=== PATIENT | male | born 1955 | race Caucasian/White ===

== ENCOUNTER 2016-10-28 07:40 | Emergency (ER) | payer OTHER ==
[~2016-10-28] VITALS: Ht 180.3 cm; Wt 111.3 kg
[~2016-10-28 07:40] MED LIST: DELTASONE20 M1 PO; LEVAQUIN750 MG PO; PROAIR RESPICL90 MCG IH; VICKS DAYQUIL-1 EACH PO
[2016-10-28] MEDS ORDERED: PRAVACHOL20 MG PO (08:07)
[2016-10-28] MEDS ORDERED: VITAMIN D31000 UNIT PO (08:08)
[2016-10-28] MEDS ORDERED: VITAMIN B12-FO1 EACH PO (08:08)
[2016-10-28] MEDS ORDERED: LO-DOSE ASPIRIN81 M2 PO (08:08)
[2016-10-28] MEDS ORDERED: AMLODIPINE BESYL5 MG PO (08:08)
[2016-10-28 08:36] LABS: BASOPHIL COUNT 0.1 K/uL (0-0.1); EOSINOPHIL (%) 2.4 % (0-5); EOSINOPHIL COUNT 0.2 K/uL (0-0.3); HEMATOCRIT 40.3 % (38.0-50.0); IMMATURE GRANULOCYTE (%) 0.9 % (0.0-0.7); IMMATURE GRANULOCYTE COUNT 0.1 K/uL; INSTRUMENT ABS NEUTROPHIL CT 4.4 K/uL; LYMPHOCYTE COUNT 1.5 K/uL (1.0-2.8); MCH 31.1 PG (29.0-34.0); MCHC 34.2 G/DL (30.0-36.0); MCV 90.8 FL (86-99); MEAN PLAT.VOLUME 10.1 uM^3 (9.0-12.4); MONOCYTE (%) 7.2 % (3-12); MONOCYTE COUNT 0.5 K/uL (0-0.8); NEUTROPHIL (%) 65.7 % (45-76); NEUTROPHIL COUNT 4.4 K/uL (1.8-6.4); PLATELET COUNT 197 K/uL (156-360); RBC DIS.WIDTH-CV 12.6 % (11.8-14.6); RBC DIS.WIDTH-SD 41.4 % (39-53); RED BLOOD COUNT 4.44 M/uL (4.00-5.50); WHITE BLOOD COUNT 6.7 K/uL (4.1-10.2)
[2016-10-28 08:58] LABS: CHLORIDE 106 mEq/L (99-109); POTASSIUM 3.9 mEq/L (3.7-5.4); SODIUM 138 mEq/L (136-147)
[2016-10-28 09:00] LABS: GLUCOSE 119 mg/dL (70-99)
[2016-10-28 09:01] LABS: ANION GAP 8 MEQ/L (2-14)
[2016-10-28 09:04] LABS: GFR ESTIMATE (CALCULATED) > 59 mL/min/
[2016-10-28 09:05] LABS: UREA NITROGEN (BUN) 12 mg/dL (9-23)
[2016-10-28 09:36] LABS: INTER. NORMALIZED RATIO 1.1; PROTHROMBIN TIME 12.3 SEC (10.2-12.9)
[2016-10-28 09:41] LABS: PTT 26.8 SEC (25-37)
[2016-10-28] MEDS ORDERED: NAPROXEN500 MG PO (11:36)
[2016-10-28 11:43] VITALS: BP 127/67
== END 2016-10-28 11:46 | disposition home or self-care (01) ==
LOC: EME 07:40
PROVIDERS: Emergency Medicine
DX: S86.812A Strain of other muscle(s) and tendon(s) at lower leg level, left leg, initial encounter (principal); S80.12XA Contusion of left lower leg, initial encounter; W17.89XA Other fall from one level to another, initial encounter; Y92.812 Truck as the place of occurrence of the external cause; Z87.891 Personal history of nicotine dependence; Z79.82 Long term (current) use of aspirin
CPT/HCPCS: 80048; 83605; 85025; 85610; 85730; 93971; 99281; 99283